=== PATIENT | male | born 1950 | race Caucasian/White ===

== ENCOUNTER → 2017-02-17 | Outpatient (CLI) | payer OTHER | LOC: BMCIMAGING 10:13 | PROVIDERS: ATTEND Orthopaedic Surgery | DX: M17.11 Unilateral primary osteoarthritis, right knee (principal); S83.091A Other subluxation of right patella, initial encounter ==

== ENCOUNTER 2017-07-27 11:19 | Emergency (ER) | payer OTHER, MEDICARE ==
[2017-07-27 11:47] VITALS: TEMP 98.6
--- NOTE | 2017-07-27 12:57 | EDPHY ---
H & P Stated Complaint: R leg swelling--sent from r/o dvt, recent knee trauma Time Seen by Provider: 07/27/17 12:21 HPI/ROS: CHIEF COMPLAINT: Asymmetric right leg swelling HISTORY OF PRESENT ILLNESS: The patient presents the ED from urgent care for evaluation of asymmetric right leg swelling. The patient sustained a twisting type injury approximately week ago. In that time he has developed some ecchymosis, swelling along the medial aspect of the thigh, knee and lower extremity. The patient denies prior history of DVT. He does have a history of superficial thrombophlebitis. The patient denies any pleuritic chest pain or shortness of breath. REVIEW OF SYSTEMS: A comprehensive 10 point review of systems is otherwise negative aside from elements mentioned in the history of present illness. - Personal History Current Tetanus/Diphtheria Vaccine: Unsure Current Tetanus Diphtheria and Acellular Pertussis (TDAP): Unsure - Medical/Surgical History Hx Asthma: No Hx Chronic Respiratory Disease: No Hx Diabetes: No Hx Cardiac Disease: No Hx Renal Disease: No Hx Cirrhosis: No Hx Alcoholism: No Hx HIV/AIDS: No Hx Splenectomy or Spleen Trauma: No Other PMH: hyperlipidemia - Social History Smoking Status: Never smoked Alcohol Use: None Drug Use: None - Physical Exam Exam: General Appearance: Alert, no distress Eyes: Pupils equal and round no pallor or injection ENT, Mouth: Mucous membranes moist Respiratory: There are no retractions, lungs are clear to auscultation Cardiovascular: Regular rate and rhythm Gastrointestinal: Abdomen is soft and nontender, no masses, bowel sounds normal Neurological: 5/5 strength all 4 extremities Skin: Warm and dry, no rashes Musculoskeletal: Neck is supple nontender Extremities: Asymmetric right leg swelling, ecchymosis noted along the medial aspect of the thigh, 2+ dorsalis pedis and posterior tibial pulses noted bilaterally Constitutional: Initial Vital Signs Temperature (C) 37.0 C 07/27/17 11:29 Heart Rate 87 07/27/17 11:29 Respiratory Rate 18 07/27/17 11:29 Blood Pressure 129/81 H 07/27/17 11:29 O2 Sat (%) 96 07/27/17 11:29 O2 Delivery Mode Room Air Allergies/Adverse Reactions: No Known Allergies Allergy (Unverified 12/31/11 10:54) Home Medications: Medication Instructions Recorded Simvastatin 01/14/16 Triamcinolone 0.1% 07/27/17 Medical Decision Making - Diagnostics Imaging Results: Imaging Impressions Extremity Venous Study 07/27/17 11:35 Impression: No deep venous thrombosis in the right lower extremity. Findings discussed with Johnathan Hanson at 12:47 hour, 07/27/2017. ED Course/Re-evaluation: The patient presents to the ED for evaluation of asymmetric right leg swelling. The patient denies any chest pain or shortness of breath. He is hemodynamically stable. The patient has no evidence of arterial insufficiency. The patient did undergo a ultrasound of lower extremity which demonstrates no evidence of a DVT or superficial phlebitis. There is no evidence of a Go's cyst. The patient presents to the ED with soft tissue swelling likely related to a myofascial strain. At this point time the patient is ambulatory without discomfort. He is advised to elevate the extremity and try Richie hose. The patient should have a follow-up ultrasound in 2 weeks for any persistent pain or swelling. He will be discharged home with customary aftercare instructions and return precautions. Differential Diagnosis: Differential diagnosis considered includes superficial phlebitis, DVT, myofascial strain, Go cyst Departure - Departure Disposition: Home, Routine, Self-Care Clinical Impression: Strain of knee and leg, right Condition: Good Instructions: Knee Pain (ED) Additional Instructions: 1. Please elevate extremity at night. 2. Please try using Richie hose which are available at a pharmacy you for improvement of your swelling. 3. Return to the ED for any increasing pain, swelling, chest pain or difficulty breathing. I do recommend a repeat ultrasound in 2 weeks for any ongoing symptoms to exclude the development of a blood clot. 4. Please schedule a follow-up appointment with your primary care provider. Referrals: Indra Aguilar MD [Primary Care Provider] - As per Instructions
[2017-07-27 13:25] VITALS: BP 130/70; PULSE 72; RESP 14; O2SAT 97
== END 2017-07-27 13:23 | disposition home or self-care (01) ==
DX: S86.911A Strain of unspecified muscle(s) and tendon(s) at lower leg level, right leg, initial encounter (principal); X50.9XXA Other and unspecified overexertion or strenuous movements or postures, initial encounter

== ENCOUNTER → 2017-07-27 | Outpatient (CLI) | payer OTHER, MEDICARE | LOC: EDSTATUS 09:16 → GIMAGING 09:59 | PROVIDERS: ATTEND Nurse Practitioner | DX: M25.561 Pain in right knee (principal) | CPT/HCPCS: 73564-PO ==

== ENCOUNTER 2018-03-14 04:39 | Emergency (ER) | payer OTHER, MEDICARE ==
--- NOTE | 2018-03-14 04:58 | EDPHY ---
H & P Time Seen by Provider: 03/14/18 04:58 HPI/ROS: HPI CHIEF COMPLAINT: Left-sided abdominal pain x4 hours. HISTORY OF PRESENT ILLNESS: This is a 67-year-old male, presents emergency room left-sided abdominal pain. This started approximately 3-4 hours ago. Denies any nausea vomiting, denies any diarrhea. The pain is rather constant located left lower quadrant he denies any fever, denies any chest pain or shortness of breath. Pain located left lower quadrant. Denies sharp stabbing pain. Denies back pain. Denies flank pain. Past Medical History: Hyperlipidemia Past Surgical History: Denies any abdominal surgery Social History: He denies drugs alcohol tobacco Family History: Noncontributory ROS REVIEW OF SYSTEMS: 10 Systems were reviewed and negative with the exception of the elements mentioned in the history of present illness. Exam Constitutional triage nursing summary reviewed, vital signs reviewed, awake/ alert. Eyes normal conjunctivae and sclera, EOMI, PERRLA. HENT normal inspection, atraumatic, moist mucus membranes, no epistaxis, neck supple/ no meningismus, no raccoon eyes. Respiratory clear to auscultation bilaterally, normal breath sounds, no respiratory distress, no wheezing. Cardiovascular rate normal, regular rhythm, no murmur, no edema, distal pulses normal. Gastrointestinal mild tender palpation left lower quadrant, no rebound, no guarding, normal bowel sounds, no distension, no pulsatile mass. Genitourinary no CVA tenderness. Musculoskeletal no midline vertebral tenderness, full range of motion, no calf swelling, no tenderness of extremities, no meningismus, good pulses, neurovascularly intact. Skin pink, warm, & dry, no rash, skin atraumatic. Neurologic awake, alert and oriented x 3, AAOx3, moves all 4 extremities equally, motor intact, sensory intact, CN II-XII intact, normal cerebellar, normal vision, normal speech. Psychiatric normal mood/affect. Heme/Lymph/Immune no lymphadenopathy. Differential diagnosis includes but is not limited to and in no particular order : Bowel obstruction, appendicitis, gallbladder disease, diverticulitis, colitis , enteritis, perforated viscus, gastritis, GERD, esophagitis, urinary tract infection, pyelonephritis, kidney stones Medical Decision Making: Plan for this patient IV establishment IV fluid bolus , IV Dilaudid 0.5 mg for pain control IV Zofran nausea, check basic blood work including lactic acid, CT scan abdomen pelvis with left lower quadrant pain. Re-evaluation: CT scan abdomen pelvis with IV contrast shows left-sided hydronephrosis and left -sided perinephric stranding with a distal left-sided 3 mm stone. This is the cause of this patient's left-sided abdominal pain. Additionally there is a right renal cyst that will need ultrasound follow up on outpatient basis. I have explained this to the patient. Patient re-evaluated at 6:02 a.m. Resting comfortably no acute distress. Not vomiting. Pain well controlled. Will prescribe Flomax, [place], Zofran. Understands drink lots of fluids. Follow-up with Urology. Return precautions discussed. Source: Patient - Medical/Surgical History Hx Asthma: No Hx Chronic Respiratory Disease: No Hx Diabetes: No Hx Cardiac Disease: No Hx Renal Disease: No Hx Cirrhosis: No Hx Alcoholism: No Hx HIV/AIDS: No Hx Splenectomy or Spleen Trauma: No Other PMH: hyperlipidemia - Social History Smoking Status: Never smoked Constitutional: Initial Vital Signs Temperature (C) 36.3 C 03/14/18 05:05 Heart Rate 81 03/14/18 05:05 Respiratory Rate 18 03/14/18 05:05 Blood Pressure 180/102 H 03/14/18 05:05 O2 Sat (%) 94 03/14/18 05:05 O2 Delivery Mode Room Air Allergies/Adverse Reactions: No Known Allergies Allergy (Unverified 12/31/11 10:54) Home Medications: Medication Instructions Recorded Simvastatin 01/14/16 Triamcinolone 0.1% 07/27/17 Hydrocodone/APAP 5/325 [Madison 1 - 2 tab PO Q4H PRN #10 tab 03/14/18 5/325] Ondansetron HCl [Zofran] 4 mg PO Q4-6PRN PRN #10 tablet 03/14/18 Tamsulosin HCl [Flomax] 0.4 mg PO DAILY #10 cap 03/14/18 Medical Decision Making - Data Points Laboratory Results: Laboratory Results 03/14/18 05:05 03/14/18 05:05 03/14/18 03/14/18 03/14/18 05:05 05:05 05:05 WBC 4.88 10^3/uL 10^3/uL (3.80-9.50) RBC 4.50 10^6/uL 10^6/uL (4.40-6.38) Hgb 14.3 g/dL g/dL (13.7-17.5) Hct 41.3 % % (40.0-51.0) MCV 91.8 fL fL (81.5-99.8) MCH 31.8 pg pg (27.9-34.1) MCHC 34.6 g/dL g/dL (32.4-36.7) RDW 13.1 % % (11.5-15.2) Plt Count 134 10^3/uL L 10^3/uL (150-400) MPV 9.9 fL fL (8.7-11.7) Neut % (Auto) 70.9 % % (39.3-74.2) Lymph % (Auto) 14.8 % L % (15.0-45.0) [place] % (Auto) 11.1 % % (4.5-13.0) Eos % (Auto) 2.0 % % (0.6-7.6) Baso % (Auto) 0.6 % % (0.3-1.7) Nucleat RBC Rel Count 0.0 % % (0.0-0.2) Absolute Neuts (auto) 3.46 10^3/uL 10^3/uL (1.70-6.50) Absolute Lymphs (auto) 0.72 10^3/uL L 10^3/uL (1.00-3.00) Absolute Monos (auto) 0.54 10^3/uL 10^3/uL (0.30-0.80) Absolute Eos (auto) 0.10 10^3/uL 10^3/uL (0.03-0.40) Absolute Basos (auto) 0.03 10^3/uL 10^3/uL (0.02-0.10) Absolute Nucleated RBC 0.00 10^3/uL 10^3/uL (0-0.01) Immature Gran % 0.6 % % (0.0-1.1) Immature Gran # 0.03 10^3/uL 10^3/uL (0.00-0.10) PT 13.4 SEC SEC (12.0-15.0) INR 1.00 (0.83-1.16) APTT 29.1 SEC SEC (23.0-38.0) Sodium 142 mEq/L mEq/L (135-145) Potassium 3.5 mEq/L mEq/L (3.3-5.0) Chloride 107 mEq/L mEq/L (97-110) Carbon Dioxide 25 mEq/l mEq/l (22-31) Anion Gap 10 mEq/L mEq/L (8-16) BUN 18 mg/dL mg/dL (7-23) Creatinine 1.1 mg/dL mg/dL (0.7-1.3) Estimated GFR > 60 Glucose 129 mg/dL H mg/dL (70-100) Calcium 9.2 mg/dL mg/dL (8.5-10.4) Total Bilirubin 0.5 mg/dL mg/dL (0.1-1.4) Conjugated Bilirubin 0.1 mg/dL mg/dL (0.0-0.5) Unconjugated Bilirubin 0.4 mg/dL mg/dL (0.0-1.1) AST 30 IU/L IU/L (17-59) ALT 43 IU/L IU/L (21-72) Alkaline Phosphatase 66 IU/L IU/L (38-126) Total Protein 6.5 g/dL g/dL (6.3-8.2) Albumin 4.0 g/dL g/dL (3.5-5.0) Lipase 47 IU/L IU/L (23-300) Medications Given: Discontinued Medications Hydromorphone HCl (Dilaudid) 0.5 mg IVP EDNOW ONE Stop: 03/14/18 05:01 Last Admin: 03/14/18 05:11 Dose: 0.5 mg Sodium Chloride (Ns) 1,000 mls @ 0 mls/hr IV EDNOW ONE; Wide Open PRN Reason: Protocol Stop: 03/14/18 05:01 Last Admin: 03/14/18 05:11 Dose: 1,000 mls Ondansetron HCl (Zofran) 4 mg IVP EDNOW ONE Stop: 03/14/18 05:01 Last Admin: 03/14/18 05:11 Dose: 4 mg Departure - Departure Disposition: Home, Routine, Self-Care Clinical Impression: Renal colic on left side Condition: Good Instructions: Renal Colic (ED), Kidney Stones (ED) Additional Instructions: 1. Drink lots of fluids. 2. Stay well-hydrated 3. Follow up with Urology. 4. Return to the ER for worsening pain questions or concerns. 5. Additionally you have a small cyst on your right kidney. This will need follow up with her primary care doctor for an ultrasound. Referrals: Indra Aguilar MD [Primary Care Provider] - As per Instructions Beth Lentz MD [Medical Doctor] - As per Instructions Prescriptions: Hydrocodone/APAP 5/325 [Madison 5/325] 1 - 2 tab PO Q4H PRN #10 tab PRN Reason: Pain, Moderate Ondansetron HCl [Zofran] 4 mg PO Q4-6PRN PRN #10 tablet PRN Reason: Nausea/Vomiting, Use 1st Tamsulosin HCl [Flomax] 0.4 mg PO DAILY #10 cap
[2018-03-14] MEDS ORDERED: NS 1,000 ML IV ONE (05:00)
[2018-03-14] MEDS ORDERED: ONDANSETRON 4 MG/2 ML VIAL IVP ONE (05:00)
[2018-03-14] MEDS ORDERED: HYDROmorphONE/DILAUDID 2 MG/ML INJ IVP ONE (05:00)
[2018-03-14] MEDS ORDERED: IOPAMIDOL (ISOVUE-300) 100 ML BTL ONE (05:11)
[2018-03-14 05:25] LABS: PLATELET COUNT 134 10^3/uL (150-400)
[2018-03-14 05:27] LABS: PROTIME(PATIENT) 13.4 SEC (12.0-15.0)
[2018-03-14] MEDS ORDERED: KETOROLAC 15 MG/1 ML SDV IVP ONE (06:01)
[2018-03-14 07:28] VITALS: BP 141/89
[2018-03-17] MEDS ORDERED: HYDROmorphONE/DILAUDID 1 MG/ML INJ ONE (05:25)
[2018-03-17] MEDS ORDERED: ONDANSETRON 4 MG/2 ML VIAL ONE (05:25)
== END 2018-03-14 07:28 | disposition home or self-care (01) ==
DX: N13.2 Hydronephrosis with renal and ureteral calculous obstruction (principal); N28.1 Cyst of kidney, acquired; E86.9 Volume depletion, unspecified
CPT/HCPCS: 74177; 96361; 96374; 96375; 99285; J1170; J1885; J2405; Q9967

== ENCOUNTER 2018-03-17 05:06 | Emergency (ER) | payer OTHER, MEDICARE ==
--- NOTE | 2018-03-17 05:10 | EDPHY ---
H & P Time Seen by Provider: 03/17/18 05:10 HPI/ROS: HPI CHIEF COMPLAINT: Kidney stone pain. HISTORY OF PRESENT ILLNESS: Very pleasant 67-year-old male, had a CT scan on March 14, or 3 days ago left-sided flank pain diagnosed with a 3 mm UVJ stone. Patient continues to have pain this evening. He was seen by Urology stated that if it did not eventually passed he may need a procedure to retrieve the stone. He presents back to the emergency room due to ongoing left-sided flank pain. States worst been. No fever. No vomiting. Pain is rather constant left flank pain. Past Medical History: Kidney stones. Past Surgical History: No recent surgery Social History: Denies drugs alcohol tobacco. Family History: Noncontributory ROS REVIEW OF SYSTEMS: 10 Systems were reviewed and negative with the exception of the elements mentioned in the history of present illness. Exam Constitutional triage nursing summary reviewed, vital signs reviewed, awake/ alert. Eyes normal conjunctivae and sclera, EOMI, PERRLA. HENT normal inspection, atraumatic, moist mucus membranes, no epistaxis, neck supple/ no meningismus, no raccoon eyes. Respiratory clear to auscultation bilaterally, normal breath sounds, no respiratory distress, no wheezing. Cardiovascular rate normal, regular rhythm, no murmur, no edema, distal pulses normal. Gastrointestinal soft, non-tender, no rebound, no guarding, normal bowel sounds, no distension, no pulsatile mass. Genitourinary no CVA tenderness. Musculoskeletal no midline vertebral tenderness, full range of motion, no calf swelling, no tenderness of extremities, no meningismus, good pulses, neurovascularly intact. Skin pink, warm, & dry, no rash, skin atraumatic. Neurologic awake, alert and oriented x 3, AAOx3, moves all 4 extremities equally, motor intact, sensory intact, CN II-XII intact, normal cerebellar, normal vision, normal speech. Psychiatric normal mood/affect. Heme/Lymph/Immune no lymphadenopathy. Differential diagnosis includes but is not limited to and in no particular order : Ongoing kidney stone pain, hydroureter, obstruction Bowel obstruction, appendicitis, gallbladder disease, diverticulitis, colitis, enteritis, perforated viscus, gastritis, GERD, esophagitis, urinary tract infection, pyelonephritis, kidney stones Medical Decision Making: Plan for this patient I do not feel that he needs repeat CT imaging as he just had this performed 3 days ago. He has complained of left flank pain. Plan will be IV establishment IV fluid bolus, IV Dilaudid for pain control, IV Zofran nausea, urinalysis, and re-evaluate. Re-evaluation: Labs and urine reviewed. Blood in urine. Patient complaining of ongoing flank pain at 6:25 a.m.. IV Toradol has been ordered. Patient has normal creatinine. 0647; lengthy discussion with the patient. Offered hospital admission however the patient has decline. Does not want to be admitted. He states his pain is well controlled after Dilaudid and Toradol. We discussed reimaging as well CT scan versus ultrasound however he has declined. Is left-sided flank pain is greatly improved now. He feels comfortable going home. I did speak with Dr. Mcginnis with Urology, discussed case in detail. He will send a note to Dr. Benítez. Patient is to call their 1st thing in the morning. Patient additionally should drink lots of fluids stay well-hydrated I will give him a new prescription for Gil[place]. He does understand return emergency room if develops worsening flank pain, vomiting, fever. Not doing well. Source: Patient - Medical/Surgical History Hx Asthma: No Hx Chronic Respiratory Disease: No Hx Diabetes: No Hx Cardiac Disease: No Hx Renal Disease: No Hx Cirrhosis: No Hx Alcoholism: No Hx HIV/AIDS: No Hx Splenectomy or Spleen Trauma: No Other PMH: hyperlipidemia - Social History Smoking Status: Never smoked Constitutional: Initial Vital Signs Temperature (C) 36.5 C 03/17/18 05:09 Heart Rate 85 03/17/18 05:09 Respiratory Rate 18 03/17/18 05:09 Blood Pressure 183/100 H 03/17/18 05:09 O2 Sat (%) 94 03/17/18 05:09 O2 Delivery Mode Nasal Cannula O2 (L/minute) 2 Allergies/Adverse Reactions: No Known Allergies Allergy (Unverified 12/31/11 10:54) Home Medications: Medication Instructions Recorded Simvastatin 01/14/16 Triamcinolone 0.1% 07/27/17 Hydrocodone/APAP 5/325 [[place] 1 - 2 tab PO Q4H PRN #10 tab 03/14/18 5/325] Ondansetron HCl [Zofran] 4 mg PO Q4-6PRN PRN #10 tablet 03/14/18 Tamsulosin HCl [Flomax] 0.4 mg PO DAILY #10 cap 03/14/18 Hydrocodone/APAP 5/325 [[place] 1 - 2 tab PO Q4H PRN #10 tab 03/17/18 5/325] Medical Decision Making - Data Points Laboratory Results: Laboratory Results 03/17/18 05:45 03/17/18 05:45 03/17/18 03/17/18 03/17/18 05:57 05:45 05:45 WBC 6.92 10^3/uL 10^3/uL (3.80-9.50) RBC 4.09 10^6/uL L 10^6/uL (4.40-6.38) Hgb 12.9 g/dL L g/dL (13.7-17.5) Hct 37.1 % L % (40.0-51.0) MCV 90.7 fL fL (81.5-99.8) MCH 31.5 pg pg (27.9-34.1) MCHC 34.8 g/dL g/dL (32.4-36.7) RDW 12.9 % % (11.5-15.2) Plt Count 112 10^3/uL L 10^3/uL (150-400) MPV 9.7 fL fL (8.7-11.7) Neut % (Auto) 83.2 % H % (39.3-74.2) Lymph % (Auto) 7.1 % L % (15.0-45.0) [place] % (Auto) 8.7 % % (4.5-13.0) Eos % (Auto) 0.4 % L % (0.6-7.6) Baso % (Auto) 0.3 % % (0.3-1.7) Nucleat RBC Rel Count 0.0 % % (0.0-0.2) Absolute Neuts (auto) 5.76 10^3/uL 10^3/uL (1.70-6.50) Absolute Lymphs (auto) 0.49 10^3/uL L 10^3/uL (1.00-3.00) Absolute Monos (auto) 0.60 10^3/uL 10^3/uL (0.30-0.80) Absolute Eos (auto) 0.03 10^3/uL 10^3/uL (0.03-0.40) Absolute Basos (auto) 0.02 10^3/uL 10^3/uL (0.02-0.10) Absolute Nucleated RBC 0.00 10^3/uL 10^3/uL (0-0.01) Immature Gran % 0.3 % % (0.0-1.1) Immature Gran # 0.02 10^3/uL 10^3/uL (0.00-0.10) RBC/WBC/PLT Morphology TNP Platelet Estimate TNP Sodium 138 mEq/L mEq/L (135-145) Potassium 3.3 mEq/L mEq/L (3.3-5.0) Chloride 105 mEq/L mEq/L (97-110) Carbon Dioxide 26 mEq/l mEq/l (22-31) Anion Gap 7 mEq/L L mEq/L (8-16) BUN 18 mg/dL mg/dL (7-23) Creatinine 1.1 mg/dL mg/dL (0.7-1.3) Estimated GFR > 60 Glucose 117 mg/dL H mg/dL (70-100) Calcium 8.7 mg/dL mg/dL (8.5-10.4) Urine Color YELLOW Urine Appearance CLEAR Urine pH 5.0 (5.0-7.5) Ur Specific [place] 1.027 (1.002-1.030) Urine Protein NEGATIVE (NEGATIVE) Urine Ketones TRACE H (NEGATIVE) Urine Blood 3+ H (NEGATIVE) Urine Nitrate NEGATIVE (NEGATIVE) Urine Bilirubin NEGATIVE (NEGATIVE) Urine Urobilinogen NEGATIVE EU EU (0.2-1.0) Ur Leukocyte Esterase NEGATIVE (NEGATIVE) Urine RBC 25-50 /hpf H /hpf (0-3) Urine WBC 1-3 /hpf /hpf (0-3) Ur Epithelial Cells NONE SEEN /lpf /lpf (NONE-1+) Urine Mucus TRACE /lpf /lpf (NONE-1+) Urine Glucose NEGATIVE (NEGATIVE) Medications Given: Discontinued Medications Hydromorphone HCl (Dilaudid) 1 mg IVP EDNOW ONE Stop: 03/17/18 05:18 Last Admin: 03/17/18 05:40 Dose: 1 mg Sodium Chloride (Ns) 1,000 mls @ 0 mls/hr IV EDNOW ONE; Wide Open PRN Reason: Protocol Stop: 03/17/18 05:18 Last Admin: 03/17/18 05:39 Dose: 1,000 mls Ketorolac Tromethamine (Toradol) 15 mg IVP EDNOW ONE Stop: 03/17/18 06:19 Last Admin: 03/17/18 06:27 Dose: 15 mg Ondansetron HCl (Zofran) 4 mg IVP EDNOW ONE Stop: 03/17/18 05:18 Last Admin: 03/17/18 05:39 Dose: 4 mg Departure - Departure Disposition: Home, Routine, Self-Care Clinical Impression: Flank pain, Kidney stone on left side Condition: Good Instructions: Flank Pain (ED), Kidney Stones (ED) Additional Instructions: 1. Drink lots of fluids stay well-hydrated 2. Return emergency room if you have worsening symptoms questions or concerns Referrals: Indra Aguilar MD [Primary Care Provider] - As per Instructions Beth Lentz MD [Medical Doctor] - As per Instructions Mango Mcginnis MD [Medical Doctor] - As per Instructions Prescriptions: Hydrocodone/APAP 5/325 [[place] 5/325] 1 - 2 tab PO Q4H PRN #10 tab PRN Reason: Pain, Moderate
[2018-03-17] MEDS ORDERED: ONDANSETRON 4 MG/2 ML VIAL IVP ONE (05:17)
[2018-03-17] MEDS ORDERED: NS 1,000 ML IV ONE (05:17)
[2018-03-17] MEDS ORDERED: HYDROmorphONE/DILAUDID 2 MG/ML INJ IVP ONE (05:17)
[2018-03-17 06:01] LABS: PLATELET COUNT 112 10^3/uL (150-400)
[2018-03-17] MEDS ORDERED: KETOROLAC 15 MG/1 ML SDV IVP ONE (06:18)
[2018-03-17 06:34] VITALS: BP 167/92
== END 2018-03-17 07:12 | disposition home or self-care (01) ==
DX: N20.0 Calculus of kidney (principal); E86.9 Volume depletion, unspecified
CPT/HCPCS: 96361; 96374; 96375; 99284; J1885

== ENCOUNTER → 2018-04-21 | Outpatient (CLI) | payer OTHER, MEDICARE | LOC: FIMAGING 08:46 | PROVIDERS: ATTEND Urology | DX: N28.1 Cyst of kidney, acquired (principal); Z96.0 Presence of urogenital implants ==